=== PATIENT | male | born 1985 | race Caucasian/White ===

== ENCOUNTER 2024-11-07 11:20 | Outpatient (CLI) | payer OTHER, SELFPAY | END 2024-11-07 11:21 | disposition home or self-care (01) | LOC: NFLDREF 11-08 18:59 | PROVIDERS: PCP Family Medicine; Referring Provider Family Medicine; Visit Provider Family Medicine | DX: Z13.6 Encounter for screening for cardiovascular disorders (principal); Z13.0 Encounter for screening for diseases of the blood and blood-forming organs and certain disorders involving the immune mechanism | CPT/HCPCS: 80053; 80061 ==

== ENCOUNTER 2025-01-18 11:33 | Outpatient (CLI) | payer OTHER, SELFPAY | END 2025-01-18 11:34 | disposition home or self-care (01) | LOC: NFLDREF 01-20 03:17 | PROVIDERS: PCP Family Medicine; Referring Provider Family Medicine; Visit Provider Family Medicine | DX: E78.00 Pure hypercholesterolemia, unspecified (principal) | CPT/HCPCS: 80061; 80076 ==